=== PATIENT | male | born 1970 | race Caucasian/White ===

== ENCOUNTER 2016-04-14 13:13 | Day surgery (SDC) | payer OTHER ==
[~2016-04-14] VITALS: Ht 180.3 cm; Wt 88.5 kg
[2016-04-14 13:36] VITALS: BP 138/81
[2016-04-14 16:55] VITALS: BP 127/78
[2016-04-14 17:50] VITALS: BP 129/80
== END 2016-04-14 17:50 | disposition home or self-care (01) ==
LOC: SDC 13:13
DX: M24.131 Other articular cartilage disorders, right wrist (principal); M25.531 Pain in right wrist
CPT/HCPCS: J0690; J1100; J1885; J2250; J2405; J3010; S0020

== ENCOUNTER 2016-06-23 17:46 | Emergency (ER) | payer OTHER ==
[~2016-06-23] VITALS: Ht 180.3 cm; Wt 88.2 kg
[2016-06-23 18:39] LABS: MCHC 33.4 G/DL (30.0-36.0); MCV 89.9 FL (86-99); MEAN PLAT.VOLUME 9.4 uM^3 (9.0-12.4); PLATELET COUNT 303 K/uL (156-360); RBC DIS.WIDTH-CV 11.9 % (11.8-14.6); RBC DIS.WIDTH-SD 39.3 % (39-53); RED BLOOD COUNT 4.56 M/uL (4.00-5.50); WHITE BLOOD COUNT 5.9 K/uL (4.1-10.2)
[2016-06-23 19:04] LABS: CHLORIDE 107 mEq/L (99-109); POTASSIUM 3.8 mEq/L (3.7-5.4); SODIUM 140 mEq/L (136-147)
[2016-06-23 19:06] LABS: GLUCOSE 117 mg/dL (70-99)
[2016-06-23 19:07] LABS: ANION GAP 9 MEQ/L (2-14)
[2016-06-23 19:10] LABS: GFR ESTIMATE (CALCULATED) > 59 mL/min/; UREA NITROGEN (BUN) 19 mg/dL (9-23)
[2016-06-23 19:44] LABS: D-DIMER ELISA < 0.15 mg/L FEU (< 0.57)
[2016-06-23 19:54] LABS: TROP-I INTERPRETATION NEGATIVE; TROPONIN-I < 0.01 ng/mL (0.0-0.30)
[2016-06-23 22:48] VITALS: BP 132/90
== END 2016-06-23 22:49 | disposition left against medical advice (07) ==
LOC: EME → EDBD 17:46 → EME 22:49
PROVIDERS: Emergency Medicine
DX: R55 Syncope and collapse (principal); R42 Dizziness and giddiness
CPT/HCPCS: 70450; 80048; 84484; 85027; 85379; 99281; 99285; J7030

== ENCOUNTER → 2017-10-07 | Outpatient (CLI) | payer BC | END | disposition home or self-care (01) | LOC: AMB 12:08 | PROC: 0JQ70ZZ Repair Back Subcutaneous Tissue and Fascia, Open Approach (ICD-10-PCS; principal; 2017-10-07) | PROC: 0JB70ZX Excision of Back Subcutaneous Tissue and Fascia, Open Approach, Diagnostic (ICD-10-PCS; principal; 2017-10-07) | DX: L72.3 Sebaceous cyst (principal); F41.9 Anxiety disorder, unspecified; E78.1 Pure hyperglyceridemia ==